=== PATIENT | male | born 1965 | race Caucasian/White ===

== ENCOUNTER 2018-06-08 00:17 | Outpatient (CLI) | payer BC, SELFPAY ==
[2018-06-08 10:49] LABS: CREATININE 1.01 mg/dL (0.70-1.30); Cholesterol 202 mg/dL (50-200); HDL Cholesterol 51 mg/dL (40-60); LDL CHOLESTEROL 129 mg/dL (<100); Potassium 4.5 mmol/L (3.5-5.1); Triglyceride 91 mg/dL (30-150)
== END 2018-06-08 00:37 ==
PROVIDERS: PCP Family Medicine; Visit Provider Family Medicine
DX: Z00.00 Encounter for general adult medical examination without abnormal findings (principal); I10 Essential (primary) hypertension; Z12.5 Encounter for screening for malignant neoplasm of prostate; E66.3 Overweight
CPT/HCPCS: 80061; 83721; 84153; 82565; 84132

== ENCOUNTER 2019-06-09 14:24 | Outpatient (CLI) | payer OTHER, SELFPAY ==
[2019-06-09 15:49] LABS: Glucose 94 mg/dL (70-100)
[2019-06-10 10:37] LABS: Hepatitis C Ab w Rflx HCV PCR Negative (NEGAT)
== END 2019-06-09 14:44 ==
PROVIDERS: PCP Family Medicine; Visit Provider Family Medicine
DX: Z00.00 Encounter for general adult medical examination without abnormal findings (principal); Z13.1 Encounter for screening for diabetes mellitus; Z11.59 Encounter for screening for other viral diseases
CPT/HCPCS: 36415; 82947; 86803; 86900; 86901

== ENCOUNTER 2020-06-17 04:24 | Outpatient (CLI) | payer OTHER, SELFPAY ==
[2020-06-17 08:10] LABS: CREATININE 1.01 mg/dL (0.70-1.30); Calculated LDL 142 mg/dL (<100); Cholesterol 214 mg/dL (<200); Glucose 103 mg/dL (74-106); HDL Cholesterol 50 mg/dL (40-60); Triglyceride 110 mg/dL (<150)
[2020-06-17 18:09] LABS: PSA, Screening 1.1 ng/mL (0.0-3.5)
== END 2020-06-17 04:44 ==
PROVIDERS: PCP Family Medicine; Visit Provider Family Medicine
DX: E78.5 Hyperlipidemia, unspecified (principal); I10 Essential (primary) hypertension; R73.9 Hyperglycemia, unspecified; Z12.5 Encounter for screening for malignant neoplasm of prostate
CPT/HCPCS: 36415; 80061; 82947; 84153; 82565

== ENCOUNTER 2021-06-20 09:50 | Outpatient (CLI) | payer OTHER, SELFPAY ==
[2021-06-20 12:35] LABS: Calculated LDL 165 mg/dL (<100); Cholesterol 239 mg/dL (<200); Glucose 105 mg/dL (74-106); HDL Cholesterol 57 mg/dL (40-60); Triglyceride 85 mg/dL (<150)
[2021-06-20 22:23] LABS: PSA, Screening 1.1 ng/mL (0.0-3.5)
== END 2021-06-20 09:51 | disposition home or self-care (01) ==
LOC: LOS 09:50
PROVIDERS: PCP Family Medicine; Referring Provider Family Medicine; Visit Provider Family Medicine
DX: E78.5 Hyperlipidemia, unspecified; R73.9 Hyperglycemia, unspecified; Z12.5 Encounter for screening for malignant neoplasm of prostate
CPT/HCPCS: 36415; 80061; 82947; 84153

== ENCOUNTER 2022-06-26 09:36 | Outpatient (CLI) | payer OTHER, SELFPAY ==
[2022-06-26 12:41] LABS: Calculated LDL 138 mg/dL (<100); Cholesterol 208 mg/dL (<200); HDL Cholesterol 58 mg/dL (40-60); Triglyceride 63 mg/dL (<150)
[2022-06-26 13:00] LABS: Hemoglobin A1C 5.8 % (<5.7)
[2022-06-26 22:39] LABS: PSA, Screening 1.3 ng/mL (<=3.5)
== END 2022-06-26 09:37 | disposition home or self-care (01) ==
LOC: LOS 09:36
PROVIDERS: PCP Family Medicine; Referring Provider Family Medicine; Visit Provider Family Medicine
DX: E78.5 Hyperlipidemia, unspecified (principal); Z12.5 Encounter for screening for malignant neoplasm of prostate; R73.9 Hyperglycemia, unspecified
CPT/HCPCS: 36415; 80061; 84153; 83036

== ENCOUNTER 2023-07-03 09:22 | Outpatient (CLI) | payer OTHER, SELFPAY ==
[2023-07-03 12:27] LABS: CREATININE 1.1 mg/dL (0.70-1.30); Calculated LDL 152 mg/dL (<100); Cholesterol 225 mg/dL (<200); Estimated GFR 77.33 (mL/min/1.73m2); HDL Cholesterol 57 mg/dL (40-60); Triglyceride 82 mg/dL (<150)
[2023-07-03 12:43] LABS: Hemoglobin A1C 5.6 % (<5.7)
== END 2023-07-03 09:23 | disposition home or self-care (01) ==
PROVIDERS: PCP Family Medicine; Referring Provider Family Medicine; Visit Provider Family Medicine
DX: E78.5 Hyperlipidemia, unspecified (principal); E11.51 Type 2 diabetes mellitus with diabetic peripheral angiopathy without gangrene; I10 Essential (primary) hypertension
CPT/HCPCS: 36415; 80061; 82565; 83036

== ENCOUNTER → 2023-09-17 00:33 | Outpatient (CLI) | payer OTHER, SELFPAY ==
--- NOTE | 2023-09-17 09:02 | DI.RAD_ITS ---
Exam(s) XR LUMBAR SPINE COMPLETE EXAM: XR LUMBAR SPINE COMPLETE CLINICAL HISTORY: low back pain,M54.9. TECHNIQUE: 2D digital imaging was performed of the lumbar spine. Five images were obtained. AP, la teral, right oblique, left oblique and L5-S1 spot views were obtained. COMPARISON: No exams were available for comparison FINDINGS: BONES: No fracture or destructive lesion. There are endplate osteophytes at all levels of the lumbar spine. There are degenerative changes of the facets at L5-S1 and L4-L5. DISKS: There is mild disc space narrowing at L1-L2. ALIGNMENT: Lumbar spinal alignment is within normal limits. No spondylolysis or spondylolisthesis. SOFT TISSUE: Atherosclerosis is present. IMPRESSION: [id number] degenerative changes in the lumbar spine. DATA REPOSITORY: RADIATION DOSE DELIVERED:
== END ==
PROVIDERS: PCP Family Medicine; Visit Provider Family Medicine
DX: M51.36 Other intervertebral disc degeneration, lumbar region (principal)
CPT/HCPCS: 72110

== ENCOUNTER 2024-07-07 10:57 | Outpatient (CLI) | payer OTHER, SELFPAY ==
[2024-07-07 12:47] LABS: Calculated LDL 138 mg/dL (<100); Cholesterol 206 mg/dL (<200); HDL Cholesterol 57 mg/dL (40-60); Triglyceride 56 mg/dL (<150)
[2024-07-07 13:04] LABS: Hemoglobin A1C 5.5 % (<5.7)
[2024-07-07 18:53] LABS: PSA, Screening 1.7 ng/mL (<=4.5)
== END 2024-07-07 10:58 ==
LOC: LOS 10:57
PROVIDERS: PCP Family Medicine; Referring Provider Family Medicine; Visit Provider Family Medicine
DX: E11.51 Type 2 diabetes mellitus with diabetic peripheral angiopathy without gangrene (principal); I70.209 Unspecified atherosclerosis of native arteries of extremities, unspecified extremity; E78.5 Hyperlipidemia, unspecified; Z12.5 Encounter for screening for malignant neoplasm of prostate
CPT/HCPCS: 36415; 80061; 84153; 83036